=== PATIENT | male | born 1980 | race African-American/Black ===

== ENCOUNTER 2020-02-14 02:07 | Observation (INO) ==
[2020-02-14 05:05] LABS: ABS Lymphocytes 0.9 10^3/ul (1.0-4.8); ABS Neutrophils 11.8 10^3/ul (1.5-7.7); Eosinophil % 0.2 %; Hematocrit 42 % (42-52); Hemoglobin 13.5 g/dL (14.0-18.0); Lymphocyte % 6.7 %; Mean Corpuscular HGB Conc 32 g/dL (31-36); Mean Corpuscular Hemoglobin 23 pg (27-31); Mean Corpuscular Volume 72 fL (80-94); Mean Platelet Volume 9.8 fL (7.4-10.4); Platelet Count 228 10^3/uL (150-450); Red Blood Count 5.83 10^6 /uL (4.18-5.48); Red Cell Distribution Width 17 % (10-15); White Blood Count 13.8 10^3/uL (3.5-10.8)
[2020-02-14 05:18] LABS: Influenza A Molecular Negative (Negative); Influenza B Molecular Negative (Negative)
[2020-02-14 05:26] LABS: ALT 25 U/L (7-52); AST 25 U/L (13-39); Albumin 4.6 g/dL (3.2-5.2); Albumin/Globulin Ratio 1.6 (1-3); Alkaline Phosphatase 72 U/L (34-104); Anion Gap 10 mmol/L (2-11); Blood Urea Nitrogen 13 mg/dL (6-24); C Reactive Protein 74.08 mg/L (<8.01); CO2 Carbon Dioxide 24 mmol/L (22-32); Calcium 9.4 mg/dL (8.6-10.3); Chloride 103 mmol/L (101-111); EGFR African American 74.4 (>60); EGFR Non-African American 61.5 (>60); Globulin 2.8 g/dL (2-4); Glucose 98 mg/dL (70-100); Potassium 3.7 mmol/L (3.5-5.0); Sodium 137 mmol/L (135-145); Total Protein 7.4 g/dL (6.4-8.9)
[2020-02-14 05:35] LABS: Troponin I 0.04 ng/mL (<0.03)
[2020-02-14 08:14] LABS: Troponin I 0.03 ng/mL (<0.03)
[2020-02-14 10:05] LABS: Urine Benzodiazepine Screen None Detected (None Detect); Urine Cannabinoids Screen None Detected (None Detect); Urine Opiates Screen None Detected (None Detect)
[2020-02-14 12:01] LABS: Troponin I 0.03 ng/mL (<0.03)
[2020-02-14] MEDS: guaiFENesin 100 mg/5 ml LIQ unit dose cup PO PRN ×2 (16:12→20:34)
[2020-02-15] MEDS: guaiFENesin 100 mg/5 ml LIQ unit dose cup PO PRN (00:05)
[2020-02-15 03:29] VITALS: BP 130/84
[2020-02-15 05:49] LABS: ABS Basophils 0.1 10^3/ul (0-0.2); ABS Eosinophils 0.3 10^3/ul (0-0.6); ABS Monocytes 1.2 10^3/ul (0-0.8); ABS Neutrophils 8.9 10^3/ul (1.5-7.7); Hematocrit 41 % (42-52); Lymphocyte % 16.2 %; Mean Corpuscular HGB Conc 32 g/dL (31-36); Mean Corpuscular Hemoglobin 23 pg (27-31); Mean Corpuscular Volume 72 fL (80-94); Mean Platelet Volume 9.8 fL (7.4-10.4); Platelet Count 226 10^3/uL (150-450); Red Blood Count 5.64 10^6 /uL (4.18-5.48); Red Cell Distribution Width 17 % (10-15); White Blood Count 12.5 10^3/uL (3.5-10.8)
[2020-02-15 06:07] LABS: BUN/Creatinine Ratio 13.5 (8-20); Calcium 8.7 mg/dL (8.6-10.3); EGFR African American 72.4 (>60); EGFR Non-African American 59.9 (>60); Potassium 3.5 mmol/L (3.5-5.0)
== END 2020-02-15 09:57 | disposition left against medical advice (07) ==
LOC: ED 02:07 → MED 02:07
PROVIDERS: ADMIT Internal Medicine; ATTEND Internal Medicine